=== PATIENT | female | born 1990 | race Caucasian/White ===

== ENCOUNTER 2016-05-31 02:26 | Emergency (ER) | payer OTHER ==
[~2016-05-31] VITALS: Ht 180.3 cm; Wt 126.2 kg
[2016-05-31 02:29] VITALS: TEMP 36.8; Ht 180.3 cm; Wt 126.2 kg
[2016-05-31] MEDS ORDERED: BCPILLS PO (02:36)
[2016-05-31] MEDS ORDERED: ONDANSETRON INJ 2 MG/ML 2 ML VIAL IV STA (02:39)
[2016-05-31] MEDS ORDERED: SODIUM CHLORIDE 0.9% 1000ML 1,000 ML IV STA ×2 (02:39→03:42)
--- NOTE | 2016-05-31 02:51 | EMERGENCY ROOM VISIT NOTE ---
History First contact with patient: 02:31 Chief Complaint: NAUSEA Stated Complaint: NAUSEA Nursing Triage Summary: pt reports NV X 4 days History of Present Illness The patient is a 25 year old female who presents to the Emergency Department by private vehicle for evaluation of her nausea and vomiting. She reports that she felt nauseated yesterday. Later this evening she developed associated vomiting. She's vomited 4 separate times. She reports no other associated symptoms. She denies any headaches, dizziness, lightheadedness, chest pain, palpitations, shortness of breath, abdominal pain, hematuria, or dysuria. She rates her current discomfort as a 0/10. She denies any chance for . She reports no recent sick contacts. She denies any recent long distance travel , consumption of raw/undercooked foods, or drinking from poor water sources. She does report recently ending a course of Augmentin for sinus infection. She denies any recent sick contacts. She reports no previous abdominal surgeries. Review of Systems A complete 10-point Review of Systems was discussed with the patient, with pertinent positives and negatives listed in the History of Present Illness. All remaining Review of Systems questions can be considered negative unless otherwise specified. Social History Smoking Status: Never Smoker Smokeless Tobacco Use: No Drug Use: none Marital Status: in relationship Housing Status: lives with significant other Occupation Status: employed Current/Historical Medications Scheduled Control Pills ( Control Pills), 1 TAB PO DAILY Scheduled PRN Ondasetron Odt (Zofran Odt), 1 TAB SL Q6 PRN for Nausea or Vomiting Allergies Coded Allergies: No Known Allergies (Unverified , 05/31/16) Physical Exam Vital Signs Date Time Temp Pulse Resp B/P Pulse Ox O2 Delivery O2 Flow Rate FiO2 05/31/16 04:28 98 18 149/87 96 05/31/16 03:53 105 18 142/92 97 Room Air 05/31/16 02:29 36.8 128 16 139/83 98 Room Air Pain Rating (0-10): 0 Physical Exam VITAL SIGNS - Vital signs and nursing notes were reviewed. GENERAL - 25-year-old female appearing her stated age who is in no acute distress. Communicates well with provider and answers questions appropriately. LUNGS - Chest wall symmetric without accessory muscle use, intercostals retractions, or central cyanosis. Normal vesicular breath sounds CTA B/L. No wheezes, rales, or rhonchi appreciated. CARDIAC - RRR with S1/S2. No murmur, rubs, or gallops appreciated. ABDOMEN - Abdominal contour obese and without pulsations or visible masses. BS normoactive all four quadrants. No tenderness to palpation appreciated throughout. No guarding. Negative Rebound Tenderness. Negative Rovsing's. Negative Benjamin's. No palpable masses, hepatosplenomegaly, or ascites noted. PSYCH - A&Ox3 and cooperates fully with examiner. Pt is very pleasant and interacts well with examiner. Medical Decision & Procedures Laboratory Results 05/31/16 02:55 Red Blood Count 5.13, Mean Corpuscular Volume 85.4, Mean Corpuscular Hemoglobin 29.2, Mean Corpuscular Hemoglobin Concent 34.2, Mean Platelet Volume 9.5, Neutrophils (%) (Auto) 87.8, Lymphocytes (%) (Auto) 6.9, Monocytes (%) (Auto) 4.0, Eosinophils (%) (Auto) 0.8, Basophils (%) (Auto) 0.2, Neutrophils # (Auto) 10.50, Lymphocytes # (Auto) 0.82, Monocytes # (Auto) 0.48, Eosinophils # (Auto) 0.09, Basophils # (Auto) 0.02 05/31/16 02:55 Test 05/31/16 00:00 05/31/16 02:55 Urine Color DK YELLOW Urine Appearance CLEAR (CLEAR) Urine pH 6.0 (4.5-7.5) Urine Specific [place] 1.032 (1.000-1.030) Urine Protein TRACE (NEG) Urine Glucose (UA) NEG (NEG) Urine Ketones 1+ (NEG) Urine Occult Blood 3+ (NEG) Urine Nitrite NEG (NEG) Urine Bilirubin NEG (NEG) Urine Urobilinogen NEG (NEG) Urine Leukocyte Esterase SMALL (NEG) Urine WBC (Auto) 10-30 /hpf (0-5) Urine RBC (Auto) 5-10 /hpf (0-4) Urine Hyaline Casts (Auto) 1-5 /lpf (0-5) Urine Epithelial Cells (Auto) >30 /lpf (0-5) Urine Bacteria (Auto) NEG (NEG) White Blood Count 11.95 K/uL (4.8-10.8) Red Blood Count 5.13 M/uL (4.2-5.4) Hemoglobin 15.0 g/dL (12.0-16.0) Hematocrit 43.8 % (37-47) Mean Corpuscular Volume 85.4 fL (80-100) Mean Corpuscular Hemoglobin 29.2 pg (25-34) Mean Corpuscular Hemoglobin Concent 34.2 g/dl (32-36) Platelet Count 294 K/uL (130-400) Mean Platelet Volume 9.5 fL (7.4-10.4) Neutrophils (%) (Auto) 87.8 % Lymphocytes (%) (Auto) 6.9 % Monocytes (%) (Auto) 4.0 % Eosinophils (%) (Auto) 0.8 % Basophils (%) (Auto) 0.2 % Neutrophils # (Auto) 10.50 K/uL (1.4-6.5) Lymphocytes # (Auto) 0.82 K/uL (1.2-3.4) Monocytes # (Auto) 0.48 K/uL (0.11-0.59) Eosinophils # (Auto) 0.09 K/uL (0-0.5) Basophils # (Auto) 0.02 K/uL (0-0.2) RDW Standard Deviation 38.6 fL (36.4-46.3) RDW Coefficient of Variation 12.4 % (11.5-14.5) Immature Granulocyte % (Auto) 0.3 % Immature Granulocyte # (Auto) 0.04 K/uL (0.00-0.02) Anion Gap 11.0 mmol/L (3-11) Est Creatinine Clear Calc Drug Dose 156.5 ml/min Estimated GFR () 116.9 Estimated GFR (Non- 100.9 BUN/Creatinine Ratio 14.9 (10-20) Calcium Level 9.2 mg/dl (8.5-10.1) Magnesium Level 1.9 mg/dl (1.8-2.4) Total Bilirubin 0.7 mg/dl (0.2-1) Aspartate Amino Transf (AST/SGOT) 19 U/L (15-37) Alanine Aminotransferase (ALT/SGPT) 33 U/L (12-78) Alkaline Phosphatase 63 U/L (45-117) Total Protein 8.1 gm/dl (6.4-8.2) Albumin 3.8 gm/dl (3.4-5.0) Globulin 4.3 gm/dl (2.5-4.0) Albumin/Globulin Ratio 0.9 (0.9-2) Lipase 80 U/L (73-393) Medications Administered Medications (Trade) Dose Ordered Sig/Lalitha Route Start Time Stop Time Status Last Admin Dose Admin Sodium Chloride (Nss 1000ml) 1,000 ml @ 999 mls/hr Q1H1M STAT IV 05/31/16 02:39 05/31/16 03:39 DC 05/31/16 02:39 999 MLS/HR Ondansetron HCl 4 mg 4 mg NOW STAT IV 05/31/16 02:39 05/31/16 02:41 DC 05/31/16 02:52 4 MG Sodium Chloride (Nss 1000ml) 1,000 ml @ 999 mls/hr Q1H1M STAT IV 05/31/16 03:42 05/31/16 04:42 DC 05/31/16 03:53 999 MLS/HR Ondanset[facility] 05/31/16 04:15 05/31/16 04:16 DC 05/31/16 04:22 1 HOMEPACK ED Course Patient was seen and evaluated by myself. Labs were drawn, saline lock in place. The patient was hydrated with a 1000 mL normal saline bolus. She received 4 mg Zofran intravenously for nausea. Laboratory results demonstrate a mild leukocytosis. The patient is not anemic. There are no significant electrolyte abnormalities. Urinalysis concerning for concentration versus contamination. Patient was reevaluated and reports feeling somewhat better at this time. She was hydrated with an additional 1000 mL of normal saline. Laboratory results were reviewed patient who acknowledges understanding. The patient was educated on following up closely with her primary care provider from today's visit. She was educated on worrisome symptoms for return visit to the emergency department. Patient discharged home afebrile and in good condition. Medical Decision Given the patient's presentation and stated complaints, I did elect to perform the above-mentioned workup. The patient presents today with nausea and vomiting. She has no fever. She is a mild leukocytosis. Her abdomen is soft and nontender to palpation. Electrolytes are unremarkable. Urinalysis concerning for contamination versus concentration. Regardless, urine cultures are pending at this time. Patient feels much better at this time. She was provided Zofran for use at home. She was educated on worrisome symptoms for return visit to the emergency department. Patient discharged home afebrile and in good condition. In the evaluation and treatments patient, the following differential diagnoses were considered: Gastroenteritis, food poisoning, appendicitis, diverticulitis, diverticulosis, amongst others. Impression Primary Impression: Nausea & vomiting Departure Information Dispostion Home / Self-Care Condition GOOD Prescriptions Ondasetron Odt (ZOFRAN ODT) 4 Mg Tab 1 TAB SL Q6 Y for Nausea or Vomiting for 5 Days, #20 TAB Prov: Maxi Cosme, BECKI 05/31/16 Referrals Iesha Sandoval DO (PCP) Patient Instructions My [facility] Additional Instructions You've been seen in the emergency department today for your nausea and vomiting. You have been prescribed Zofran to be used for any nausea or vomiting. Take as prescribed. Drink plenty of fluids and stay well-hydrated. Follow-up with your primary care provider from today's visit. Return for any changing or worsening symptoms. Problem Qualifiers Primary Impression: Nausea & vomiting Vomiting type: unspecified Vomiting Intractability: non-intractable Qualified Codes: R11.2 - Nausea with vomiting, unspecified
[2016-05-31 03:03] LABS: BASO % 0.2 %; BASO ABS # 0.02 K/uL (0-0.2); COMPLETE YES; EOS % 0.8 %; HEMATOCRIT 43.8 % (37-47); IG% 0.3 %; LYMPH % 6.9 %; LYMPH ABS # 0.82 K/uL (1.2-3.4); MEAN CELL VOLUME 85.4 fL (80-100); MEAN CORPUSCULAR HEMOGLOBIN 29.2 pg (25-34); MEAN CORPUSCULAR HGB CONC 34.2 g/dl (32-36); MEAN PLATELET VOLUME 9.5 fL (7.4-10.4); NEUT % 87.8 %; PLATELET COUNT 294 K/uL (130-400); RED BLOOD COUNT 5.13 M/uL (4.2-5.4); WHITE BLOOD COUNT 11.95 K/uL (4.8-10.8)
[2016-05-31 03:26] LABS: BUN/CREATININE RATIO 14.9 (10-20); CALCIUM 9.2 mg/dl (8.5-10.1); CREATININE 0.82 mg/dl (0.60-1.20); MAGNESIUM 1.9 mg/dl (1.8-2.4); POTASSIUM 3.9 mmol/L (3.5-5.1)
[2016-05-31 03:29] LABS: ALB/GLOB RATIO 0.9 (0.9-2)
[2016-05-31 03:39] LABS: URINE APPEARANCE CLEAR (CLEAR); URINE BILIRUBIN NEG (NEG); URINE COLOR DK YELLOW; URINE EPITHELIAL CELL AUTO >30 /lpf (0-5); URINE NITRITE NEG (NEG); URINE SPECIFIC GRAVITY 1.032 (1.000-1.030); UROBILINOGEN NEG (NEG); ZZUR CULT IF INDIC CLEAN CATCH YES
[2016-05-31 03:40] LABS: MANUAL MICROSCOPIC REQUIRED? NO; REVIEW REQ? YES
[2016-05-31] MEDS ORDERED: ONDA4TAB10 SL (04:11)
[2016-05-31] MEDS ORDERED: ONDANSETRON HOME PACK 4MG OD TAB PO ONE (04:15)
[2016-05-31 04:28] VITALS: BP 149/87; PULSE 98; O2SAT 96
== END 2016-05-31 04:28 | disposition home or self-care (01) ==
LOC: C.EDB 02:27 → C.EDA 04:28
DX: R11.2 Nausea with vomiting, unspecified (principal); Z79.3 Long term (current) use of hormonal contraceptives